=== PATIENT | female | born 1950 | race Caucasian/White ===

== ENCOUNTER 2018-02-07 10:28 | Emergency (ER) | payer OTHER ==
[~2018-02-07] VITALS: Ht 157.5 cm; Wt 62.2 kg
[2018-02-07] MEDS ORDERED: MOTRIN800 MG PO (13:12)
[2018-02-07 13:41] VITALS: BP 160/79
== END 2018-02-07 13:42 | disposition home or self-care (01) ==
LOC: EME 10:28
DX: S30.0XXA Contusion of lower back and pelvis, initial encounter (principal); M54.2 Cervicalgia; S40.812A Abrasion of left upper arm, initial encounter; W10.9XXA Fall (on) (from) unspecified stairs and steps, initial encounter; Y93.H9 Activity, other involving exterior property and land maintenance, building and construction; E78.5 Hyperlipidemia, unspecified; I10 Essential (primary) hypertension; K21.9 Gastro-esophageal reflux disease without esophagitis; Z87.891 Personal history of nicotine dependence
CPT/HCPCS: 72040; 72100; 72220; 73090; 99281; 99283